=== PATIENT | female | born 1960 | race African-American/Black ===

== ENCOUNTER 2018-02-06 23:09 | Inpatient (IN) | payer OTHER ==
[2018-02-06] MEDS ORDERED: Magnesium 2 GM/50 ML BAG (IN WATER) ONE (23:57)
[2018-02-06] MEDS ORDERED: Digoxin 0.5 MG/2 ML AMP ONE (23:57)
[2018-02-07 00:40] LABS: Troponin I 0.011 ng/mL (< 0.028)
[2018-02-07] MEDS ORDERED: Ondansetron PF 4 MG/2 ML Vial ONE (00:48)
[2018-02-07] MEDS ORDERED: Ondansetron ODT 4 MG TAB ONE (00:48)
[2018-02-07] MEDS ORDERED: Labetalol HCl 100 MG/20 ML VIAL ONE (01:48)
[2018-02-07 03:55] LABS: Troponin I Less than 0.010 ng/mL (< 0.028)
[2018-02-07] MEDS ORDERED: Digoxin 0.5 MG/2 ML AMP ONE (06:00)
[2018-02-07] MEDS ORDERED: LOVENOX IVPB PRN (07:22)
[2018-02-07] MEDS ORDERED: Bisacodyl 5 MG TAB PO PRN (07:22)
[2018-02-07] MEDS ORDERED: Acetaminophen 650 MG Suppository PR PRN (07:22)
[2018-02-07] MEDS ORDERED: Senokot S 8.6-50 MG TAB PO PRN (07:22)
[2018-02-07] MEDS ORDERED: Ondansetron PF 4 MG/2 ML Vial IVP PRN (07:22)
[2018-02-07] MEDS ORDERED: Acetaminophen 325 MG TAB PO PRN (07:22)
[2018-02-07] MEDS ORDERED: Ondansetron ODT 4 MG TAB PO PRN (07:22)
[2018-02-07] MEDS ORDERED: Sodium Chloride 0.9% 1,000 ML IV SCH (07:30)
[2018-02-07 08:04] LABS: Phosphorus 3.1 mg/dL (2.3-4.7)
[2018-02-07] MEDS ORDERED: Aspirin 325 MG TAB PO SCH (09:00)
[2018-02-07 10:40] VITALS: BMI 30.4
[2018-02-07] MEDS ORDERED: Digoxin 0.5 MG/2 ML AMP SLOW IVP SCH (12:00)
[2018-02-07] MEDS: Enoxaparin Sodium 100 MG/ML SYRINGE SC SCH (12:02)
[2018-02-07] MEDS: Nebivolol HCl 5 MG TAB PO SCH (12:04)
--- NOTE | 2018-02-07 13:40 | HP ---
PRIMARY CARE PHYSICIAN: Dr. Terrell Small. REASON FOR ADMISSION: Atrial fibrillation with rapid ventricular response. HISTORY OF PRESENT ILLNESS: A 57-year-old female, who initially went to [facility] for complaint of palpitation. The patient reports that she has underlying history of atrial fibrillation. She is taking Bystolic for that. She is able to recognize her atrial fibrillation by checking her pulse and feeling palpitation and dizziness. She did not have any associated chest pain, orthopnea, PND, dizziness, or syncope. She was found with AFib with RVR at [facility] and she was started on Cardizem drip. Subsequently, she was transported to our emergency room. Initially, she was requiring drip 10 mg/hour. Subsequently, drip was decreased to 5 mg/hour. Subsequently, her rate was under control, but she remained in AFib. When I saw this morning, at that time, her rate was under control, but the patient was still in AFib and she was not having any symptoms associated with that. She denies any previous history of diabetes, TIA, or stroke. She denies any exertional chest pain or palpitation. The patient pretty much well controlled her AFib with Bystolic. PAST MEDICAL HISTORY: Paroxysmal atrial fibrillation, hypertension. PAST SURGICAL HISTORY: Colon resection, endometriosis surgery, , hysterectomy, appendicectomy. PAST PSYCHIATRIC HISTORY: Reviewed and negative. SOCIAL HISTORY: The patient is living at home with the family. No history of tobacco, alcohol, or illicit drug abuse. FAMILY HISTORY: Mother has atrial fibrillation, no Family history of CAD, CVA or cancer. ALLERGIES: NO KNOWN DRUG ALLERGIES. CURRENT HOME MEDICATION: Bystolic 10 mg p.o. daily. EMERGENCY ROOM COURSE: The patient is given Zofran 4 mg, IV fluid, Lovenox 1 mg /kg, Cardizem bolus x2 and then Cardizem drip was started. REVIEW OF SYSTEMS: Please see my HPI for pertinent positive and negative. All other review of systems reviewed and negative except as mentioned in the HPI. PHYSICAL EXAMINATION: VITAL SIGNS: Currently, blood pressure 110/79, pulse 91 and irregular, respiratory rate 17, temperature 98.3, saturation 97% on room air. When she came to [facility], her heart rate was in 150s and irregular, in AFib. GENERAL: The patient is currently alert and oriented, in no obvious acute distress. HEAD: Normocephalic and atraumatic. EYES: Pupils are round and reactive to light. Extraocular muscle intact. ENT: Oropharynx within normal limit. Moist mucous membrane. No oral lesion. No pharyngeal erythema. No exudate. NECK: Supple. No JVD. No thyromegaly. No carotid bruits. No jugular venous distention. LUNGS: Clear to auscultation without any rhonchi or rales. CARDIAC: S1 and S2, irregular. No murmur, no gallop, no rub. ABDOMEN: Soft. Bowel sound present. Nontender, nondistended. No organomegaly. No mass. No suprapubic tenderness. BACK: Unremarkable. No CVA tenderness. EXTREMITIES: Upper extremity, passive movement of all joints are normal. Lower extremity; no edema, good distal pulsation, no calf tenderness. SKIN: No skin rash. HEMATOLOGIC: No lymphadenopathy. PSYCHIATRIC: Normal affect. NEUROLOGIC: Nonfocal examination. LABORATORY DATA: Significant labs: CBC; WBC 9.6, hemoglobin 13.0, platelets 288. BMP; sodium 142, potassium 3.5, chloride 109, carbon dioxide 24, anion gap 13, BUN 21, creatinine 1.02, glucose 132, calcium 9.8. Phosphorus 3.1, magnesium 2.2. LFT; AST 19, ALT 21, alkaline phosphatase 102, albumin 4.0. TSH 1.46. Cardiac enzyme negative x3. EKG showing atrial fibrillation with rapid ventricular response. Chest x-ray based on my review, no acute cardiopulmonary process. ASSESSMENT AND PLAN: Impression: 1. Atrial fibrillation with rapid ventricular response. This patient has a history of paroxysmal atrial fibrillation. The patient's rate is under control with Cardizem drip. Now, Cardizem drip, we are going to keep on hold cardizem drip p.r.n. basis to use. We will start Cardizem CD 120 mg p.o. now. Cardiology already consulted. Echocardiography will be obtained. We will monitor on telemetry floor. We will continue with aspirin 325 mg p.o. daily. I will also continue Lovenox 1 mg/kg subcu twice daily. This patient based on CHADS2-VASc score, only she has 1 point with her hypertension and female sex and that is why she is at intermediate risk for future cerebrovascular accident. custodial anticoagulation decision will be deferred to Cardiology. Further decision will be deferred to Cardiology as well. If the patient converts back to sinus rhythm and if her rate remains controlled in the next 24 hours, then we will consider discharging her home soon. The patient will need evaluation with heart rate control with walking program as well. If she needs any further workup like stress test, then we will defer to Cardiology as well. 2. Hypertension: We will continue Bystolic 5 mg p.o. daily. 3. Deep venous thrombosis prophylaxis: The patient is already on full dose of Lovenox therapy. 4. Gastrointestinal prophylaxis, Pepcid 20 mg p.o. b.i.d. 5. Code status: The patient is full code. The patient does not have any surrogate decision maker. 6. Disposition plan, based on clinical course and Cardiology recommendation. Plan of care discussed with the patient and family member at bedside in the emergency room. Job ID: [id number] MTDD
[2018-02-07] MEDS: Famotidine 20 MG TAB PO SCH (21:11)
[2018-02-08 05:49] LABS: Anion Gap 10 mmol/L (10-20); BUN (Urea Nitrogen) 17 mg/dL (9.8-20.1); Calc. Creatinine Clearance 115 mL/min (70-130); Calcium 8.8 mg/dL (7.8-10.44); Carbon Dioxide 22 mmol/L (22-29); Cardiac Risk 3.6 (Less than 4.5); Chloride 112 mmol/L (98-107); Cholesterol 130 mg/dl (< 200 Desired); Estimated GFR-MDRD 87; Glucose 82 mg/dL (70-105); HDL Cholesterol 36 mg/dL (>60 Neg Risk); LDL Cholesterol, Calculated 78 mg/dL; Magnesium 2.1 mg/dL (1.6-2.6); Potassium 4.1 mmol/L (3.5-5.1); Sodium 140 mmol/L (136-145); Triglycerides 80 mg/dL (Less than 150)
[2018-02-08 06:05] LABS: Hemoglobin 12.9 g/dL (12.0-16.0); Lymphocytes 62 % (21-51); MDiff Complete? YES; Mean Corpuscular HGB CONC 34.9 g/dL (32.0-36.0); Mean Corpuscular Hemoglobin 28.2 pg (27.0-31.0); Mean Corpuscular Volume 80.8 fL (78.0-98.0); Mean Platelet Volume 8.5 fL (7.4-10.4); Monocytes 10 % (0-10); Neutrophil 28 % (42-75); PLT Morphology Comment Appears Adequate; Platelet Count 262 thou/uL (130-400); RBC Distribution Width 12.6 % (11.5-14.5); Red Blood Cell (RBC) Count 4.56 mill/uL (4.20-5.40); White Blood Cell (WBC) Count 6.8 thou/uL (4.8-10.8)
[2018-02-08] MEDS ORDERED: Sodium Chloride 0.65% Nasal 44 ML BOT EA NARE PRN (08:02)
[2018-02-08] MEDS ORDERED: Loperamide HCl 2 MG CAP PO PRN (08:02)
[2018-02-08] MEDS ORDERED: Eucerin (Mineral Oil/Petrolatum,White) 30 gm Jar TOP PRN (08:02)
[2018-02-08] MEDS ORDERED: hydrALAZINE 20 MG/ML VIAL SLOW IVP PRN (08:02)
[2018-02-08] MEDS ORDERED: Diabetic Tussin 200 MG/10 ML UDCUP PO PRN (08:02)
[2018-02-08] MEDS ORDERED: Acetaminophen 500 MG TAB PO PRN (08:02)
[2018-02-08] MEDS ORDERED: Cepastat Lozenges 1 LOZ PO PRN (08:02)
[2018-02-08] MEDS ORDERED: Loratadine 10 MG TAB PO PRN (08:02)
[2018-02-08] MEDS ORDERED: Zolpidem Tartrate 5 MG TAB PO PRN (08:02)
[2018-02-08] MEDS ORDERED: Artificial Tears 18 DROP/0.9 ML EA EYE PRN (08:02)
[2018-02-08] MEDS: Dronedarone HCl 400 MG TAB PO SCH ×2 (09:27→17:37)
[2018-02-08] MEDS: Enoxaparin Sodium 100 MG/ML SYRINGE SC SCH (09:28)
[2018-02-08] MEDS: Nebivolol HCl 5 MG TAB PO SCH (09:28)
[2018-02-08] MEDS: Famotidine 20 MG TAB PO SCH ×2 (09:28→21:28)
--- NOTE | 2018-02-08 10:26 | PDOC.PN ---
- Subjective Encounter Start Date: 02/08/18 Encounter Start Time: 08:15 -: old records requested/rev Patient seen and examined. No new complaints. No overnight events - Objective Resuscitation Status - Order Detail: 02/07/18 07:22 Resuscitation Status Routine Resuscitation Status: FULL: Full Resuscitation MAR Reviewed: Yes Vital Signs & Weight: Vital Signs (12 hours) Temp Pulse Resp BP Pulse Ox 02/08/18 07:34 98.3 F 75 16 108/64 98 02/08/18 04:00 97.9 F 69 12 119/57 L 99 Weight Weight 208 lb 7 oz I&O: 02/07/18 02/08/18 02/09/18 06:59 06:59 06:59 Intake Total 300 Output Total 400 Balance -100 Result Diagrams: 02/08/18 05:00 02/08/18 05:00 Radiology Reviewed by me: Yes (echo report noted) EKG Reviewed by me: Yes (afib) Phys Exam - Physical Examination Constitutional: NAD HEENT: PERRLA, moist MMs, sclera anicteric Neck: no JVD, supple Respiratory: no wheezing, no rales, no rhonchi Cardiovascular: no significant murmur, no rub, irregular Gastrointestinal: soft, non-tender, no distention, positive bowel sounds Musculoskeletal: no edema, pulses present Neurological: non-focal, normal sensation, moves all 4 limbs Lymphatic: no nodes Psychiatric: normal affect, A&O x 3 Skin: no rash, normal turgor Dx/Plan (1) Atrial fibrillation with RVR Code(s): I48.91 - UNSPECIFIED ATRIAL FIBRILLATION Status: Acute (2) Hypertension Code(s): I10 - ESSENTIAL (PRIMARY) HYPERTENSION Status: Chronic - Plan cont current plan of care, plan discussed w/ family * multaq started today * if she does not convert, she may need cardioversion * continue lovenox * may need elliquis on discharge * medication reviewed as below * symptomatic treatment. Review of Systems - Review of Systems ENT: negative: Ear Pain, Ear Discharge, Nose Pain, Nose Discharge, Nose Congestion, Mouth Pain, Mouth Swelling, Throat Pain, Throat Swelling, Other Respiratory: negative: Cough, Dry, Shortness of Breath, Hemoptysis, SOB with Excertion, Pleuritic Pain, Sputum, Wheezing Cardiovascular: negative: chest pain, palpitations, orthopnea, paroxysmal nocturnal dyspnea, edema, light headedness, other Gastrointestinal: negative: Nausea, Vomiting, Abdominal Pain, Diarrhea, Constipation, Melena, Hematochezia, Other Genitourinary: negative: Dysuria, Frequency, Incontinence, Hematuria, Retention , Other Musculoskeletal: negative: Neck Pain, Shoulder Pain, Arm Pain, Back Pain, Hand Pain, Leg Pain, Foot Pain, Other Skin: negative: Rash, Lesions, Gino, Bruising, Other - Medications/Allergies Allergies/Adverse Reactions: Allergies Allergy/AdvReac Type Severity Reaction Status Date / Time No Known Allergies Allergy Verified 02/07/18 15:19 Medications: Current Medications Acetaminophen (Tylenol) 650 mg PO Q4H PRN PRN Reason: Headache/Fever/Mild Pain (1-3) Artificial Tears (Tears Naturale) 2 drop EA EYE PRN PRN PRN Reason: Dry Eyes Bisacodyl (Dulcolax) 10 mg PO DAILYPRN PRN PRN Reason: Constipation Dronedarone (Multaq) 400 mg PO BID-[facility] Last Admin: 02/08/18 09:27 Dose: 400 mg Enoxaparin Sodium (Lovenox) 100 mg SC 0900,2100 [facility] Last Admin: 02/08/18 09:28 Dose: 100 mg Famotidine (Pepcid) 20 mg PO BID [facility] Last Admin: 02/08/18 09:28 Dose: 20 mg Guaifenesin (Robitussin Sf) 200 mg PO Q4H PRN PRN Reason: Cough Hydralazine HCl (Apresoline) 10 mg SLOW IVP Q4H PRN PRN Reason: SBP > 180 and HR < 70 Loperamide HCl (Imodium) 2 mg PO PRN PRN PRN Reason: Diarrhea/Loose Stools Loratadine (Claritin) 10 mg PO DAILYPRN PRN PRN Reason: Sinus Symptoms Mineral Oil/White Petrolatum (Eucerin Cream) 0 gm TOP BIDPRN PRN PRN Reason: Dry Skin Nebivolol (Bystolic) 5 mg PO DAILY [facility] Last Admin: 02/08/18 09:28 Dose: 5 mg Ondansetron HCl (Zofran Odt) 4 mg PO Q6H PRN PRN Reason: Nausea/Vomiting Ondansetron HCl (Zofran) 4 mg IVP Q6H PRN PRN Reason: Nausea/Vomiting Senna/Docusate Sodium (Senokot S) 2 tab PO BIDPRN PRN PRN Reason: Constipation Sodium Chloride (Flush - Normal Saline) 10 ml IVF Q12HR PRN PRN Reason: Saline Flush Sodium Chloride (Flush - Normal Saline) 10 ml IVF PRN PRN PRN Reason: Saline Flush Sodium Chloride (Pepin Nasal [place] 0.65%) 0 ml EA NARE QIDPRN PRN PRN Reason: Nasal Congestion Throat Lozenges (Cepastat Lozenges) 1 amor PO Q2H PRN PRN Reason: Sore Throat Zolpidem Tartrate (Ambien) 5 mg PO HSPRN PRN PRN Reason: Insomnia
[2018-02-08] MEDS ORDERED: PROPOFOL 200 MG/20 ML VIAL ONE (11:40)
[2018-02-08] MEDS ORDERED: PROPOFOL 20 ML ONE (11:48)
--- NOTE | 2018-02-08 14:13 | PRG ---
DATE OF SERVICE: 02/08/2018 SUBJECTIVE: Ms. Gil underwent successful cardioversion today. She maintained atrial fibrillation overnight. Therefore, she was taken for transesophageal echo and cardioversion today. She is feeling well after the cardioversion. OBJECTIVE: VITAL SIGNS: Her blood pressure has been normal, pulse rate just over 100 prior to cardioversion and in sinus bradycardia, rate 58 postcardioversion. LUNGS: Clear. CARDIAC: Normal S1. Normal S2. ABDOMEN: Soft, nontender. EXTREMITIES: No significant edema. ASSESSMENT: 1. Persistent atrial fibrillation. 2. CHADS-VASc 1 based on female status, otherwise no risk factors. PLAN: 1. We will give her Eliquis 5 mg twice a day for 30 days. 2. Multaq 400 mg twice a day for 30 days. 3. Continue Bystolic. 4. Long-term anticoagulation would not be indicated in this patient who is highly symptomatic when she goes into atrial fibrillation and it is CHADS-VASc 1 female status only being the only risk factor. Job ID: [id number]
[2018-02-08] MEDS: Apixaban 5 MG TAB PO SCH (21:28)
[2018-02-08 21:48] LABS: Hemoglobin 12.5 g/dL (12.0-16.0); Platelet Count 279 thou/uL (130-400)
[2018-02-08] MEDS ORDERED: Sodium Chloride 0.9% 1,000 ML IV SCH (22:00)
--- NOTE | 2018-02-09 07:59 | ECHO ---
TRANSESOPHAGEAL ECHOCARDIOGRAM: DATE OF PROCEDURE: 02/08/2018. HISTORY: This is a 57-year-old woman with paroxysmal atrial fibrillation. DESCRIPTION OF PROCEDURE: The patient was taken to the PACU. The patient was sedated by anesthesiology. A transesophageal pro be was placed in the distal esophagus and stomach. Echocardiographic images were obtained. The barrett sesophageal probe was removed. FINDINGS: 1. Normal left ventricular systolic function. 2. Normal mitral and aortic valves. 3. Trivial mitral regurgitation. 4. Mild tricuspid regurgitation. 5. No thrombus in the left atrial or left atrial appendage. 6. Atherosclerotic debris in the descending aorta. IMPRESSION: No formed thrombus in the left atrial or left atrial appendage. Cc: Dr. Todd Merlos POS: [facility]
--- NOTE | 2018-02-09 08:07 | OP ---
PROCEDURE NOTE: PROCEDURE: Cardioversion. The patient was brought to the recovery area in the fasting state. She was sedated by the anesthesio logist. She had a transesophageal echo showing no evidence of a thrombus. She was given 200 joules direct current energy which converted her to normal sinus rhythm. CONCLUSION: Successful cardioversion.
[2018-02-09 08:16] VITALS: TEMP 99
[2018-02-09] MEDS: Apixaban 5 MG TAB PO SCH (08:17)
[2018-02-09] MEDS: Dronedarone HCl 400 MG TAB PO SCH (08:17)
[2018-02-09] MEDS: Famotidine 20 MG TAB PO SCH (08:17)
--- NOTE | 2018-02-09 10:37 | DIS ---
DATE OF ADMISSION: 02/06/2018 DATE OF DISCHARGE: 02/09/2018 PRIMARY CARE PHYSICIAN: Sher Small, DISCHARGE DISPOSITION: Home. PRIMARY DISCHARGE DIAGNOSES: 1. Atrial fibrillation with rapid ventricular response. 2. Status post cardioversion converted to sinus rhythm. SECONDARY DISCHARGE DIAGNOSIS: History of hypertension. PRIMARY PROCEDURE/OPERATION: Cardioversion was performed by Dr. Joiner and subsequently, the patient had normal sinus rhythm. Transesophageal echocardiography was performed before cardioversion, which did not show any thrombus. RADIOLOGICAL INVESTIGATION: Chest x-ray was unremarkable. Echocardiography showed normal EF. SIGNIFICANT LABS: WBC 6.8, hemoglobin 12.9, and platelets 262. Sodium 140, potassium 4.1, BUN 17, creatinine 0.82, and calcium 8.8. Cardiac enzyme negative. Phosphorus 3.1, LDL 78, TSH 0.56. DISCHARGE MEDICATIONS: 1. Eliquis 5 mg p.o. b.i.d. Duration as per the Cardiology. 2. Multaq 400 mg p.o. b.i.d. CONTRAINDICATION: None. CODE STATUS: Full code. INPATIENT FLIGHT OPERATIONS DISPATCH CLERK: Dr. Joiner was consulted for atrial fibrillation. TEST RESULT PENDING ON DISCHARGE: None. ALLERGIES: NO KNOWN DRUG ALLERGIES. DISCHARGE PLAN: Posthospital, the patient will follow up with Dr. Terrell Small in 1 week. The patient is instructed to follow up with Dr. Joiner as instructed in 2 to 3 weeks. HOSPITAL COURSE: A 57-year-old female, who has underlying history of hypertension as well as paroxysmal atrial fibrillation. Before coming to hospital, she was taking only Bystolic 10 mg daily. The patient was experiencing palpitation and she was feeling mild dizziness and that is why she went to local emergency room at [place], where she was found with AFib with RVR. Subsequently, the patient was treated with Cardizem bolus and Cardizem drip was started and she was transferred to our emergency room for evaluation and admission. The patient was initially treated with the Cardizem drip and subsequently, her rate was under control and we started on Cardizem p.o. Cardiology was consulted. The patient was admitted to Telemetry floor. Cardiology started Multaq therapy, but the patient did not convert to sinus rhythm and that is why the patient required transesophageal echocardiography and ruled out left atrial appendage and she underwent DC cardioversion. After DC cardioversion, the patient converted to sinus rhythm and we observed 24 hours in hospital. The patient remained stable hemodynamically. Initially, the patient was given Lovenox 1 mg per kg, but on discharge, we changed to Eliquis therapy. We noted that the patient's blood pressure was running low and that is why we advised this patient to hold Bystolic therapy and continue Eliquis and Multaq therapy. She is also instructed to keep checking her blood pressure at home and if the blood pressure is going high, then she can start her Bystolic at half dose after consultation with primary care physician. The patient is given long-term anticoagulation therapy for at least one month after cardioversion with Eliquis therapy. Multaq is also prescribed. I have seen and examined at bedside today. Plan of care discussed with the patient and her mother. Today, I have discussed at length about all medication side effects including Eliquis and Multaq, and answered all her question. PHYSICAL EXAMINATION: VITAL SIGNS: The patient is seen and examined at bedside today. Currently, temperature 97.7, pulse 60, blood pressure 104/55, respiratory rate 16, saturation 99% on room air. Weight 210 pounds. GENERAL: The patient is currently alert, awake, in no obvious acute distress. HEAD: Normocephalic and atraumatic. EYES: Pupil, round, and reactive to light. Extraocular muscle intact. ENT: Oropharynx within normal limit. Moist mucous membrane. No oral lesion. No pharyngeal erythema. No exudate. NECK: Supple. No JVD. No thyromegaly. No carotid bruits. No jugular venous distention. LUNGS: Clear to auscultation without any rhonchi or rales. CARDIAC: S1 and S2, regular without murmur. ABDOMEN: Soft and benign without any tenderness. EXTREMITIES: No edema. NEUROLOGIC: Nonfocal examination. REVIEW OF SYSTEMS: Review of systems reviewed with her and negative. TOTAL TIME SPENT ON DISCHARGE: 31 minutes. Job ID: [id number]
[2018-02-09 10:44] VITALS: BP 120/70
== END 2018-02-09 10:58 | disposition home or self-care (01) | DRG 310 ==
LOC: ERS 23:09 → ERHOLD 23:40 → 2NO 02-07 00:10
PROVIDERS: ADMIT Internal Medicine; ATTEND Internal Medicine
PROC: 5A2204Z Restoration of Cardiac Rhythm, Single (ICD-10-PCS; principal; 2018-02-08)
DX: I48.1 Persistent atrial fibrillation (principal); I10 Essential (primary) hypertension; Z79.899 Other long term (current) drug therapy
CPT/HCPCS: 36415; 36416; 80048; 80061; 83735; 84100; 84443; 84484; 85025; 92960; 93005; 93306; 93312; 96361; 96365; 96375; 96376; J1160; J1650; J2405; J2704; Q0162

== ENCOUNTER 2020-09-07 09:37 | Outpatient (CLI) | payer BC | END 2020-09-07 09:38 | disposition home or self-care (01) | LOC: BICRAD 09:37 | PROVIDERS: ATTEND Internal Medicine Rheumatology | DX: M81.0 Age-related osteoporosis without current pathological fracture (principal) | CPT/HCPCS: 72072 ==

== ENCOUNTER 2020-09-11 09:56 | Outpatient (CLI) | payer BC | END 2020-09-11 09:57 | disposition home or self-care (01) | LOC: BICMAMMO 09:56 | PROVIDERS: ATTEND Internal Medicine Rheumatology | DX: M81.0 Age-related osteoporosis without current pathological fracture (principal); M85.851 Other specified disorders of bone density and structure, right thigh; M85.852 Other specified disorders of bone density and structure, left thigh | CPT/HCPCS: 77080 ==

== ENCOUNTER 2022-04-26 09:12 | Outpatient (CLI) | payer BC | END 2022-04-26 09:13 | disposition home or self-care (01) | LOC: BICRAD 09:12 | PROVIDERS: ATTEND Physician Assistant Medical | DX: K21.9 Gastro-esophageal reflux disease without esophagitis (principal); R14.0 Abdominal distension (gaseous); I48.91 Unspecified atrial fibrillation; I80.9 Phlebitis and thrombophlebitis of unspecified site | CPT/HCPCS: 71046 ==

== ENCOUNTER 2022-08-22 18:30 | Outpatient (CLI) | payer BC | END 2022-08-22 18:31 | disposition home or self-care (01) | LOC: SLEEPLAB 18:30 | PROVIDERS: ATTEND Nurse Practitioner Family | DX: G47.9 Sleep disorder, unspecified (principal); R53.83 Other fatigue; R09.89 Other specified symptoms and signs involving the circulatory and respiratory systems; E66.9 Obesity, unspecified; Z68.32 Body mass index [BMI] 32.0-32.9, adult; I51.9 Heart disease, unspecified; G47.33 Obstructive sleep apnea (adult) (pediatric) | CPT/HCPCS: 95800 ==

== ENCOUNTER 2025-02-20 07:25 | Outpatient (CLI) | payer MEDICARE ==
[2025-02-20 08:04] LABS: Estimated GFR - POC 71.0
== END 2025-02-20 07:26 | disposition home or self-care (01) ==
LOC: CT 07:25
PROVIDERS: ATTEND Internal Medicine Gastroenterology
DX: R10.13 Epigastric pain (principal); I77.4 Celiac artery compression syndrome; K57.30 Diverticulosis of large intestine without perforation or abscess without bleeding; N20.0 Calculus of kidney; Z98.890 Other specified postprocedural states
CPT/HCPCS: 36415; 74177; 82565